=== PATIENT | female | born 1990 | race Caucasian/White ===

== ENCOUNTER → 2017-11-15 | Outpatient (CLI) | payer BC ==
[2017-11-15 14:39] LABS: ADD MAN DIFF? NO
[2017-11-15 14:44] LABS: BASO % 1 % (0-3); EOS % 5 % (0-3); HEMATOCRIT 38.5 % (36.0-47.0); HEMOGLOBIN 12.9 g/dL (12.0-15.5); LYMPH # 2.2 x10^3/uL (1.0-4.8); LYMPH % 36 % (24-48); MEAN CORPUSCULAR HEMOGLOBIN 30 pg (25-35); MEAN CORPUSCULAR HGB CONC 33 g/dL (31-37); MEAN CORPUSCULAR VOLUME 88 fL (79-100); MONO % 7 % (0-9); NEUT % 52 % (31-73); PLATELET COUNT 274 x10^3/uL (140-400); RED BLOOD COUNT 4.36 x10^6/uL (3.50-5.40); RED CELL DISTRIBUTION WIDTH 12.5 % (11.5-14.5); WHITE BLOOD COUNT 6.1 x10^3/uL (4.0-11.0)
[2017-11-15 15:05] LABS: ALBUMIN 3.8 g/dL (3.4-5.0); ANION GAP 11 (6-14); BLOOD UREA NITROGEN 12 mg/dL (7-20); CALCIUM 8.4 mg/dL (8.5-10.1); CARBON DIOXIDE 27 mmol/L (21-32); CHLORIDE 106 mmol/L (98-107); CREATININE 0.7 mg/dL (0.6-1.0); GFR 101.1; GLUCOSE 80 mg/dL (70-99); POTASSIUM 3.9 mmol/L (3.5-5.1); SODIUM 144 mmol/L (136-145); TOTAL BILIRUBIN 0.3 mg/dL (0.2-1.0)
== END | disposition home or self-care (01) ==
LOC: SURGPAT 13:50
DX: Z01.818 Encounter for other preprocedural examination (principal); Z90.49 Acquired absence of other specified parts of digestive tract
CPT/HCPCS: 36415; 80048; 82040; 82247; 85025

== ENCOUNTER → 2017-11-22 | Day surgery (SDC) | payer BC ==
[~2017-11-22] VITALS: Ht 165.1 cm; Wt 73.0 kg
[~2017-11-22] MED LIST: ASPI325T11 PO; BUPIVAC MPF-EPI 0.5%-1:200000 30 ML VIAL. ONE; DESFLURANE 31 TO 60 MINUTES IH ONE; DEXAMETHASONE SOD PHOS 20 MG/5 ML VIAL. ONE; GLUCAGON,HUMAN RECOMBINANT 1 MG/ML VIAL. ONE; GLYCOPYRROLATE 1 MG/5 ML VIAL. ONE; HYDR-971 PO; HYDROcodone/APAP 5/325MG 1 TAB TABLET PO ONE; HYDROmorphone 2 MG/ML VIAL IV PRN; IOHEXOL 300 MG/ML 100ML VIAL. ONE; IV RINGERS,LACTATED 1000ML 1,000 ML IV SCH; LIDOCAINE 1% PF 2 ML VIAL. ID PRN; LIDOCAINE 2% PF Vial for OR 5 ML VIAL. ONE; MORPHINE SULFATE 2 MG/ML DISP.SYRIN. IV PRN; NEOSTIGMINE 10 MG/10 ML VIAL. ONE; ONDANSETRON PF 4 MG/2 ML VIAL. IV PRN; ONDANSETRON PF 4 MG/2 ML VIAL. ONE; PNV1TABL25 PO; PROCHLORPERAZINE 10 MG/2 ML VIAL. IV PRN; PROPOFOL 20 ML IV ONE; ROCURONIUM 50 MG/5 ML VIAL. ONE; SUCCINYLCHOLINE 200 MG/10 ML VIAL. ONE; SURGICEL HEMOSTAT 4X8 EACH. ONE; fentaNYL PF VIAL 100 MCG/2 ML VIAL ONE
[2017-11-22 07:22] LABS: NEG OBC UR NEG; POS OBC UR POS
--- NOTE | 2017-11-22 08:45 | RAD ---
Intraoperative cholangiogram, 11/22/2017: History: Cholecystectomy 2 spot films from surgery are presented for review. Contrast has been injected into the cystic duct remnant. 9 seconds of fluoroscopy time was utilized. There is good flow of contrast into the duodenum at the ampulla. No filling defect is seen in the common duct to suggest a retained stone. The incompletely opacified intrahepatic ducts are unremarkable. No contrast extravasation is seen. IMPRESSION: No significant abnormality is detected.
[2017-11-22] MEDS: fentaNYL PF VIAL 100 MCG/2 ML VIAL IV PRN ×6 (09:12→12:18)
--- NOTE | 2017-11-22 09:33 | DISCH ---
DISCHARGE INSTRUCTIONS Condition on Discharge Condition on Discharge: Stable Activity After Discharge Activity Instructions for Disc: Activity as tolerated, Avoid exertion Lifting Instructions after Dis: No heavy lifting Driving Instructions after Dis: Do not drive (3-4 days) Diet after Discharge Diet after Discharge: Regular Wound Incision Care Wound/Incision Care: Ice to area for comfort Follow-Up Follow Up With: Gianni next week BRIGETTE BOLANOS MD Nov 22, 2017 09:33
--- NOTE | 2017-11-22 09:35 | PDOC ---
BRIEF OPERATIVE NOTE Date: Nov 22, 2017 Pre-Op Diagnosis symptomatic cholelithiasis Post-Op Diagnosis same Procedure Performed l/s cholecystectomy with cholangiograms Surgeon Gianni Anesthesia Type: General Blood Loss 20cc IV Fluid 1000cc Specimens Obtained GB Findings supple GB, normal grams Complications none Operative Note WK # [id number] BRIGETTE BOLANOS MD Nov 22, 2017 09:35
--- NOTE | 2017-11-22 09:38 | OP ---
DATE OF SURGERY: 11/22/2017 PREOPERATIVE DIAGNOSIS: Symptomatic cholelithiasis. POSTOPERATIVE DIAGNOSIS: Symptomatic cholelithiasis. PROCEDURE: Laparoscopic cholecystectomy with cholangiogram. SURGEON: Brigette Bolanos MD ANESTHESIA: General endotracheal. BLOOD LOSS: 20. INTRAVENOUS FLUIDS: 1 liter. INDICATIONS: The patient is a 27-year-old who is 6 weeks , had a right upper quadrant pain during , was found to have stones, is brought now for cholecystectomy. OPERATIVE FINDINGS: The gallbladder was supple. There were a few filmy omental adhesions on it. Visual inspection of the remainder of the abdomen failed to reveal obvious abnormalities. DESCRIPTION OF PROCEDURE: The patient brought to the operating suite, given a general endotracheal anesthetic and the abdomen prepped and draped in usual sterile fashion. A supraumbilical incision was infiltrated with 0.5% Marcaine with epinephrine. Small incision made and a 5 mm Visiport used to safely gain access into the abdominal cavity, taking care to avoid injury to abdominal contents. Pneumoperitoneum established. Camera inserted. Inspection carried out with results as noted above. With the table in reverse Trendelenburg rolled to the left, the epigastric and midclavicular ports were placed under direct vision. The lateral port location was used for an "alligator" grasper. The gallbladder was retracted superolaterally and omental adhesions carefully taken down with gentle blunt dissection and cautery, taking care to avoid injury to the adjacent bowel. The cystic artery and cystic duct were identified. The artery was anterior and ____ adherent to the cystic duct. As such, it was gently freed up, clipped and divided to expose the cystic duct. The cystic duct was clipped on the gallbladder side. Cholangiograms were made. These were normal. In light of this, the catheter was removed. The cystic duct was clipped x 3 and divided, taking care to avoid injury or compromise the common duct. The gallbladder freed from the bed with cautery dissection. Part way up the fossa, a small posterior vessel was encountered, clipped and divided and gallbladder freed and placed in an EndoCatch bag. Good hemostasis was present. Table returned to level. Gallbladder delivered through the epigastric incision. Epigastric incision closed with interrupted 0 Vicryl suture. The intra-abdominal pressure decreased to 6 cm of water. No bleeding from the epigastric closure site or from the midclavicular port site after its removal or from the alligator clamp site after its removal. Abdomen decompressed, camera slowly removed, no bleeding seen. Skin incisions closed with subcuticular 4-0 Monocryl. Steri-Strips and sterile dressings applied. The patient awakened from her anesthetic and taken to the recovery room in satisfactory condition. BRIGETTE BOLANOS MD DR: SUSHMA/lakshmi JOB#: [id number] / [id number]
[2017-11-22 13:20] VITALS: BP 118/61
--- NOTE | 2017-11-23 16:25 | PATHOLOGY ---
PATHOLOGY REPORT * * * * * * * * FINAL DIAGNOSIS: Gallbladder, laparoscopic cholecystectomy: - Cholelithiasis. - Cholesterolosis, focal. - Chronic cholecystitis. COMMENT: There is no evidence of malignancy. (JPM:mmlara; 11/23/2017) REPORT ELECTRONICALLY SIGNED BY: Maximo Armendariz M.D. DATE/TIME: 11/23/2017 16:22 * * * * * * * * GROSS PATHOLOGY: Received in formalin labeled "Boris Pena, gallbladder and contents," is a 7.9 x 3.0 x 2.5 cm, intact gallbladder with dark blue to purple, highly vascular serosal surfaces. Opening the gallbladder reveals dark green, velvety mucosa, slightly rippled with yellow highlights, and an average wall thickness of 0.2 cm. Calculi are present, measuring 0.3 cm maximum dimension, possessing a yellow color and granular appearance, and feeling friable to the touch. No masses are noted grossly. Game Tester sections from the body and fundus are submitted along with the proximal margin in cassette A1. (TSD; 11/22/2017) INITIAL CPT CODE(S): A; 83850 Professional services performed [place] [facility] [place] [address] Technical services performed by [facility] at [address] [place] [address], [facility] [address], [place] [address]. SPECIMEN(S) RECEIVED: A.Gallbladder and contents CLINICAL HISTORY: Symptomatic cholelithiasis PATIENT: BORIS PENA /AGE: 605/10/1990 (Age: 27) PATIENT #: [id number] ALT CASE #: SPECIMEN COLLECTION DATE: 11/22/2017 SPECIMEN RECEIVED DATE: 11/22/2017 [facility] - [address] [place] [address] - PHONE: [phone] * * * END OF REPORT * * *
== END | disposition home or self-care (01) ==
LOC: SURG 06:34 → EDUNIT# 08:00
PROVIDERS: ATTEND Surgery
DX: K80.10 Calculus of gallbladder with chronic cholecystitis without obstruction (principal); K82.4 Cholesterolosis of gallbladder; Z88.1 Allergy status to other antibiotic agents; Z88.0 Allergy status to penicillin
CPT/HCPCS: 47563; 74300; 81025; J0330; J1100; J1956; J2405; J2704; J2710; J3010; J3490; J7030; J7120; Q9967; J1610; J2001